=== PATIENT | male | born 2000 | race Caucasian/White ===

== ENCOUNTER 2022-02-13 07:16 | Emergency (ER) | payer OTHER ==
[~2022-02-13] VITALS: Ht 172.7 cm; Wt 75.1 kg
[2022-02-13] MEDS ORDERED: ONDANSETRON 4MG 2ML VIAL IV ONE (09:25)
[2022-02-13] MEDS ORDERED: NS 1,000 ML IV ONE (09:25)
[2022-02-13 10:36] LABS: BASO % 0.5 % (0.0-1.0); EOS % 0.6 % (0.0-3.0); HEMATOCRIT 46.7 % (42.0-52.0); HEMOGLOBIN 16.7 g/dl (13.5-17.5); LYMPH # 1.8 10^3/uL (1.5-5.0); LYMPH % 28.6 % (24.0-44.0); MEAN CORPUSCULAR HEMOGLOBIN 30.3 pg (27.0-33.0); MEAN CORPUSCULAR HGB CONC 35.8 g/dl (32.0-36.5); MEAN CORPUSCULAR VOLUME 84.6 fl (80.0-96.0); MONO # 0.5 10^3/uL (0.0-0.8); MONO % 7.2 % (2.0-8.0); NEUTROPHILS % 62.8 % (36.0-66.0); PLATELET COUNT, AUTOMATED 251 10^3/uL (150-450); RED BLOOD COUNT 5.52 10^6/uL (4.30-6.10); WHITE BLOOD COUNT 6.4 10^3/uL (4.0-10.0)
[2022-02-13 11:18] LABS: ALBUMIN 4.2 GM/DL (3.2-5.2); ALT/SGPT 20 U/L (12-78); BILIRUBIN,DIRECT 0.2 MG/DL (0.0-0.2); BILIRUBIN,TOTAL 1.5 MG/DL (0.2-1.0); BLOOD UREA NITROGEN 9 MG/DL (7-18); CALCIUM LEVEL 9.3 MG/DL (8.5-10.1); CARBON DIOXIDE LEVEL 31 MEQ/L (21-32); CHLORIDE LEVEL 104 MEQ/L (98-107); CREATININE FOR GFR 0.83 MG/DL (0.70-1.30); GLUCOSE, FASTING 95 MG/DL (70-100); LIPASE 91 U/L (73-393); SODIUM LEVEL 138 MEQ/L (136-145); TOTAL PROTEIN 7.2 GM/DL (6.4-8.2)
[2022-02-13] MEDS ORDERED: ONDA4TAB6 PO (12:08)
[2022-02-13 12:21] VITALS: BP 136/89
== END 2022-02-13 13:10 | disposition home or self-care (01) ==
LOC: M ED 07:16
DX: R10.9 Unspecified abdominal pain (principal); R11.2 Nausea with vomiting, unspecified; R19.7 Diarrhea, unspecified
CPT/HCPCS: 36415; 80048; 80076; 83690; 85025; 96361; 96374; 99284; J2405

== ENCOUNTER 2022-07-21 20:21 | Emergency (ER) | payer OTHER ==
[~2022-07-21] VITALS: Ht 172.7 cm; Wt 71.7 kg
[~2022-07-21 20:21] MED LIST: ONDA4TAB6 PO
[2022-07-21 20:22] VITALS: BP 138/86
[2022-07-21] MEDS ORDERED: ADALAT PO (20:31)
[2022-07-21] MEDS ORDERED: IBUPROFEN 800 MG TAB PO ONE (21:20)
[2022-07-21] MEDS ORDERED: CYCLOBENZAPRINE 5MG TABLET PO ONE (21:20)
[2022-07-21] MEDS ORDERED: IBUP80TA PO (21:20)
[2022-07-21] MEDS ORDERED: CYCL5TAB PO (21:20)
== END 2022-07-21 21:37 | disposition home or self-care (01) ==
LOC: M ED 21:21
DX: M54.50 Low back pain, unspecified (principal); F32.A Depression, unspecified; Z79.891 Long term (current) use of opiate analgesic; Z79.83 Long term (current) use of bisphosphonates; Z79.899 Other long term (current) drug therapy

== ENCOUNTER → 2023-04-18 | Outpatient (REF) ==
[~2023-04-18] MED LIST changes: +ADALAT PO; +CYCL5TAB PO; +IBUP80TA PO
== END ==
LOC: M PLAIMG 09:55
PROVIDERS: ATTEND Internal Medicine
DX: R52 Pain, unspecified (principal)